=== PATIENT | female | born 1995 | race Caucasian/White ===

== ENCOUNTER 2017-11-08 22:27 | Emergency (ER) | payer OTHER ==
[2017-11-08] MEDS ORDERED: Robitussin AC Syrup Unit Dose Cup PO STA (22:51)
[2017-11-08 22:53] VITALS: BP 137/83; PULSE 100; O2SAT 98
[2017-11-08] MEDS ORDERED: Robitussin AC Syrup Unit Dose Cup ONE (22:55)
--- NOTE | 2017-11-08 22:59 | ERPHSYRPT ---
- History of Present Illness Time Seen by Provider: 11/08/17 22:54 Source: patient Exam Limitations: no limitations Patient Subjective Stated Complaint: Cough, sore throat Triage Nursing Assessment: Pt presents to the Ed with complaints of cough, sore throat and congestion x2 days. Pt denies fevers, sob, or other complaints. Pt is A&O x3, bed in low position, call light in reach. No distress noted. Physician History: Pt presents to the Ed with complaints of cough, sore throat and congestion x2 days. Pt denies fevers, sob, or other complaints. Timing/Duration: day(s) (2 days) Cough Quality/Degree: dry cough Associated Symptoms: chills, cough, muscle aches International travel in last 2 weeks: No Allergies/Adverse Reactions: Bleach (Sodium Hypochlorite) Allergy (Verified 11/08/17 22:54) lavender (Lavandula angustifolia) Allergy (Verified 11/08/17 22:54) Hx Tetanus, Diphtheria Vaccination/Date Given: Yes Hx Influenza Vaccination/Date Given: No Hx Pneumococcal Vaccination/Date Given: No Immunizations Up to Date: Yes - Review of Systems Constitutional: Malaise Eyes: No Symptoms Ears, Nose, & Throat: Throat Pain Respiratory: Cough Cardiac: No Symptoms Abdominal/Gastrointestinal: No Symptoms Genitourinary Symptoms: No Symptoms Musculoskeletal: No Symptoms - Social History Smoking Status: Current every day smoker How long have you smoked: 5 years Exposure to second hand smoke: Yes Patient Lives Alone: No - Female History Hx Last Menstrual Period: 11/08/2017 Hx Now: No - Nursing Vital Signs Nursing Vital Signs: Initial Vital Signs Temperature 98.6 F 11/08/17 22:49 Pulse Rate 100 H 11/08/17 22:49 Respiratory Rate 16 11/08/17 22:49 Blood Pressure 137/83 11/08/17 22:49 O2 Sat by Pulse Oximetry 98 11/08/17 22:49 Pain Scale Pain Intensity 0 - Physical Exam General Appearance: mild distress Eye Exam: PERRL/EOMI Ears, Nose, Throat Exam: moist mucous membranes, pharyngeal erythema Neck Exam: normal inspection Respiratory Exam: normal breath sounds Cardiovascular Exam: regular rate/rhythm Gastrointestinal/Abdomen Exam: soft Back Exam: normal inspection Extremity Exam: normal inspection SpO2: 98 Oxygen Delivery: Room Air - Course Nursing assessment & vital signs reviewed: Yes Ordered Tests: Medication Summary Discontinued Medications Generic Name Dose Route Start Last Admin Trade Name Yudith PRN Reason Stop Dose Admin Guaifenesin/Codeine Phosphate 10 ml 11/08/17 22:51 Robitussin Ac Syrup Unit Dose Cup PO 11/08/17 22:52 Q4H PRN STA - Progress Progress: unchanged Air Movement: good Blood Culture(s) Obtained: No Antibiotics given: No Counseled pt/family regarding: diagnosis, need for follow-up - Departure Time of Disposition: 22:57 Departure Disposition: Home Clinical Impression: Influenza A Condition: Stable Critical Care Time: No Referrals: JULIEN JAVED MD [Primary Care Provider] - Instructions: Flu, Adult (DC) Additional Instructions: VIRAL ILLNESS 1. Rest at home and take any prescribed medications as directed or until gone. 2. Offer plenty of fluids as tolerated. 3. Acetaminophen or Ibuprofen as directed. 4. Be sure to follow up with your family physician or return to the emergency department if symptoms change or become worse. Prescriptions: Guaifenesin/Dextromethorphan [Mucinex Dm ER 600-30 mg Tablet] 1 each PO BID #10 tab.er.12h
== END 2017-11-08 23:43 | disposition home or self-care (01) ==
LOC: ED 22:27
DX: J11.1 Influenza due to unidentified influenza virus with other respiratory manifestations (principal); R05 Cough; J02.9 Acute pharyngitis, unspecified
CPT/HCPCS: 99283; A9270-GY

== ENCOUNTER 2024-02-28 23:46 | Emergency (ER) | payer OTHER ==
[2024-02-28 23:56] VITALS: TEMP 97; O2SAT 97
[2024-02-29] MEDS ORDERED: ATARAX 25 MG ONE (00:32)
[2024-02-29] MEDS: ATARAX 25 MG PO ONE (00:33)
[2024-02-29] MEDS ORDERED: ZOFRAN ODT 4 MG ONE (00:36)
[2024-02-29] MEDS: ZOFRAN ODT 4 MG PO ONE (00:40)
--- NOTE | 2024-02-29 00:43 | ERPHSYRPT ---
- History of Present Illness Time Seen by Provider: 02/29/24 00:20 Historian: patient Patient Subjective Stated Complaint: chest discomfort most of the day, vomiting. Pt states, "I've been having this chest pain off and on for about a year and a half but it has gotten worse lately". Triage Nursing Assessment: Pt ambulated into ER without difficulty, sister at bedside. Pt is alert and oriented x4. Pt c/o chest pain to the left side of her chest that began around 11:30 today and has been off and on. Pt was seen tonight at [facility] at 2130 for the same thing and released. Pt does state that she's had chest pain off and on for about a year and a half now. Pt is 8 weeks , has some nausea and vomiting. Pt is extremely anxious. Physician History: 28yo f presents for left sided shoulder and chest pain that has been ongoing intermittently for the past 1.5yrs. Pt reports she is a , states she is currently 8wks ega confirmed by urine test. Pt reports significant hx of anxiety, states this chest discomfort has significantly worsened her anxiety as well. Pt states the pain begins in her left shoulder/trapezius and radiates anteriorly into the left upper chest. Pt also reports some associated nausea and vomiting, has vomited several times today, NBNB. Pt is anxious on exam. Pt denies sob, abdominal pain, vaginal bleeding. Pt states she was seen in [facility] ED earlier today for the same sx, at which time they "did an ekg and told her she was fine." Timing/Duration: intermittent Activities at Onset: none Quality: aching Location: shoulder (left) Chest Pain Radiation: no radiation Severity of Pain-Max: mild Severity of Pain-Current: mild Modifying Factors: Improves With: nothing Associated Symptoms: nausea, vomiting, No palpitations, No abdominal pain, No shortness of breath, No cough, No fever, No edema Prior Chest Pain/Cardiac Workup: recently seen/treated (outpatient cardiac workup started by PCP David Daniels) Nitro Today/Relief: no nitro taken today Aspirin Treatment Today: no aspirin today Allergies/Adverse Reactions: Bleach (Sodium Hypochlorite) Allergy (Verified 02/29/24 00:17) lavender (Lavandula angustifolia) Allergy (Verified 02/29/24 00:17) cephalexin [From Keflex] Adverse Reaction (Intermediate, Verified 02/29/24 00:17) Itching Home Medications: PANTOPRAZOLE 40 mg Tablet [Protonix 40MG Tablet] 1 tab PO DAILY 02/29/24 [History] Vit37/Iron/Folic Acid [Prenata Chewable Tablet] 1 tab PO DAILY 02/29/24 [History] Sertraline HCl 50 mg [Zoloft 50 mg Tablet] 25 mg PO DAILY 02/29/24 [History] Hx Tetanus, Diphtheria Vaccination/Date Given: Yes Hx Influenza Vaccination/Date Given: No Hx Pneumococcal Vaccination/Date Given: No Travel Risk - International Travel Have you traveled outside of the country in past 3 weeks: No - Emerging Infectious Disease Symptoms: Cough: New Onset, Vomitting - Review of Systems Constitutional: No Symptoms Respiratory: No Symptoms Cardiac: Chest Pain Abdominal/Gastrointestinal: Nausea, Vomiting, No Abdominal Pain, No Hematemesis, No Hematochezia Genitourinary Symptoms: No Symptoms - Past Medical History Pertinent Past Medical History: Yes Neurological History: No Pertinent History ENT History: No Pertinent History Cardiac History: No Pertinent History Respiratory History: Asthma Endocrine Medical History: No Pertinent History Musculoskeletal History: No Pertinent History GI Medical History: GERD History: No Pertinent History Psycho-Social History: No Pertinent History Female Reproductive Disorders: No Pertinent History Other Medical History: 1 miscarriage, 1 - Past Surgical History Past Surgical History: Yes Neuro Surgical History: No Pertinent History Cardiac: No Pertinent History Respiratory: No Pertinent History Gastrointestinal: Cholecystectomy Genitourinary: No Pertinent History Musculoskeletal: Orthopedic Surgery Female Surgical History: No Pertinent History Other Surgical History: Rt ankle 2 surgeries in 2018 - Female History Hx Last Menstrual Period: . Hx Now: Yes Gestational Age: 8 weeks - Social History Smoking Status: Current every day smoker How long have you smoked: 10 yrs Exposure to second hand smoke: Yes Drug Use: none Patient Lives Alone: No - Nursing Vital Signs Nursing Vital Signs: Initial Vital Signs Temperature 97.0 F 02/28/24 23:54 Pulse Rate 86 02/28/24 23:54 Respiratory Rate 20 02/28/24 23:54 Blood Pressure 113/76 02/28/24 23:54 O2 Sat by Pulse Oximetry 97 02/28/24 23:54 Pain Scale Pain Intensity 5 - Physical Exam General Appearance: no apparent distress, alert, anxiety Respiratory Exam: normal breath sounds, lungs clear, airway intact, No chest tenderness, No respiratory distress, No diminished breath sounds Cardiovascular Exam: regular rate/rhythm, normal heart sounds, normal peripheral pulses, No edema Gastrointestinal/Abdomen Exam: soft, No tenderness Extremity Exam: other (TTP, hypertonicity of left trapezius musculature ) Neurologic Exam: alert, oriented x 3, cooperative SpO2 Interpretation: normal SpO2: 97 O2 Delivery: Room Air - Course EKG Interpreted by Me: RATE (76), Sinus Rhythm, NORMAL ST-T, Other (qtcb [id number]) Ordered Tests: Active Orders 24 hr Category Date Time Status CBC W DIFF Stat Lab 02/29/24 00:46 Completed CMP Stat Lab 02/29/24 00:46 Completed TROPONIN Q4H Lab 02/29/24 00:46 Completed TROPONIN Q4H Lab 02/29/24 04:30 Ordered TROPONIN Q4H Lab 02/29/24 08:30 Ordered UA W/RFX UR CULTURE Stat Lab 02/29/24 00:31 Completed Medication Summary Discontinued Medications Generic Name Dose Route Start Last Admin Trade Name Selwynq PRN Reason Stop Dose Admin Hydroxyzine HCl 25 mg 02/29/24 00:28 02/29/24 00:33 Hydroxyzine Hcl 25 Mg Tablet PO 02/29/24 00:29 25 mg STAT ONE Administration Hydroxyzine HCl Confirm 02/29/24 00:32 Hydroxyzine Hcl 25 Mg Tablet Administered 02/29/24 00:33 Dose 25 mg .ROUTE .STK-MED ONE Ondansetron HCl 4 mg 02/29/24 00:36 02/29/24 00:40 Zofran 4 Mg/Udtablet Orally Disintegrating PO 02/29/24 00:37 4 mg STAT ONE Administration Ondansetron HCl Confirm 02/29/24 00:36 Zofran 4 Mg/Udtablet Orally Disintegrating Administered 02/29/24 00:37 Dose 4 mg .ROUTE .STK-MED ONE Lab/Rad Data: Laboratory Result Diagrams 02/29/24 00:46 02/29/24 00:46 Laboratory Results 02/29/24 02/29/24 02/29/24 Range/Units 00:46 00:46 00:46 WBC 12.6 H (4.0-10.5) x10^3/uL RBC 4.29 (4.1-5.4) x10^6/uL Hgb 12.8 (12.0-16.0) g/dL Hct 37.1 (35-47) % MCV 86.5 (78-100) fL MCH 29.8 (26-32) pg MCHC 34.5 (32-36) g/dL RDW 12.5 (11.5-14.0) % Plt Count 286 (150-450) x10^3/uL MPV 10.3 (7.5-11.0) fL Gran % 79.7 H (36.0-66.0) % Immature Gran % (Auto) 0.3 (0.00-0.4) % Nucleat RBC Rel Count 0.0 (0.00-0.1) % Eos # (Auto) 0.02 (0-0.5) x10^3/uL Immature Gran # (Auto) 0.04 H (0.00-0.03) x10^3u/L Absolute Lymphs (auto) 1.89 (1.0-4.6) x10^3/uL Absolute Monos (auto) 0.58 (0.0-1.3) x10^3/uL Absolute Nucleated RBC 0.00 (0.00-0.01) x10^3u/L Lymphocytes % 15.0 L (24.0-44.0) % Monocytes % 4.6 (0.0-12.0) % Eosinophils % 0.2 (0.00-5.0) % Basophils % 0.2 (0.0-0.4) % Absolute Granulocytes 10.06 H (1.4-6.9) x10^3/uL Basophils # 0.02 (0-0.4) x10^3/uL Sodium 139 (135-145) mmol/L Potassium 3.6 (3.5-5.1) mmol/L Chloride 106 (98-107) mmol/L Carbon Dioxide 23 (22-30) mmol/L Anion Gap 13.5 (5-15) MEQ/L BUN 4 L (7-17) mg/dL Creatinine 0.63 (0.52-1.04) mg/dL Estimated GFR 123.8 ML/MIN Glucose 97 (74-106) mg/dL Calcium 9.7 (8.4-10.2) mg/dL Total Bilirubin 0.50 (0.2-1.3) mg/dL AST 19 (14-36) U/L ALT 30 (0-35) U/L Alkaline Phosphatase 89 (38-126) U/L Troponin I < 0.012 (0.000-0.033) ng/mL Serum Total Protein 7.8 (6.3-8.2) g/dL Albumin 4.6 (3.5-5.0) g/dL Urine Color (Yellow) Urine Appearance (Clear) Urine pH (4.6-8.0) Ur Specific [place] (1.005-1.030) Urine Protein (Negative) Urine Glucose (UA) (Negative) mg/dL Urine Ketones (Negative) Urine Blood (Negative) Urine Nitrite (Negative) Urine Bilirubin (Negative) Urine Urobilinogen (0.2) mg/dL Ur Leukocyte Esterase (Negative) U Hyaline Cast (Auto) (0-2) /LPF Urine Microscopic RBC (0-5) /HPF Urine Microscopic WBC (0-5) /HPF Ur Epithelial Cells (None Seen) /HPF Urine Bacteria (None Seen) /HPF Urine Culture Reflexed (NO) 02/29/24 Range/Units 00:31 WBC (4.0-10.5) x10^3/uL RBC (4.1-5.4) x10^6/uL Hgb (12.0-16.0) g/dL Hct (35-47) % MCV (78-100) fL MCH (26-32) pg MCHC (32-36) g/dL RDW (11.5-14.0) % Plt Count (150-450) x10^3/uL MPV (7.5-11.0) fL Gran % (36.0-66.0) % Immature Gran % (Auto) (0.00-0.4) % Nucleat RBC Rel Count (0.00-0.1) % Eos # (Auto) (0-0.5) x10^3/uL Immature Gran # (Auto) (0.00-0.03) x10^3u/L Absolute Lymphs (auto) (1.0-4.6) x10^3/uL Absolute Monos (auto) (0.0-1.3) x10^3/uL Absolute Nucleated RBC (0.00-0.01) x10^3u/L Lymphocytes % (24.0-44.0) % Monocytes % (0.0-12.0) % Eosinophils % (0.00-5.0) % Basophils % (0.0-0.4) % Absolute Granulocytes (1.4-6.9) x10^3/uL Basophils # (0-0.4) x10^3/uL Sodium (135-145) mmol/L Potassium (3.5-5.1) mmol/L Chloride (98-107) mmol/L Carbon Dioxide (22-30) mmol/L Anion Gap (5-15) MEQ/L BUN (7-17) mg/dL Creatinine (0.52-1.04) mg/dL Estimated GFR ML/MIN Glucose (74-106) mg/dL Calcium (8.4-10.2) mg/dL Total Bilirubin (0.2-1.3) mg/dL AST (14-36) U/L ALT (0-35) U/L Alkaline Phosphatase (38-126) U/L Troponin I (0.000-0.033) ng/mL Serum Total Protein (6.3-8.2) g/dL Albumin (3.5-5.0) g/dL Urine Color Yellow (Yellow) Urine Appearance Clear (Clear) Urine pH 6.0 (4.6-8.0) Ur Specific [place] 1.015 (1.005-1.030) Urine Protein Negative (Negative) Urine Glucose (UA) Negative (Negative) mg/dL Urine Ketones Negative (Negative) Urine Blood Negative (Negative) Urine Nitrite Negative (Negative) Urine Bilirubin Negative (Negative) Urine Urobilinogen 0.2 (0.2) mg/dL Ur Leukocyte Esterase Negative (Negative) U Hyaline Cast (Auto) NONE SEEN (0-2) /LPF Urine Microscopic RBC 3-5 (0-5) /HPF Urine Microscopic WBC 0-2 (0-5) /HPF Ur Epithelial Cells Few (None Seen) /HPF Urine Bacteria Few A (None Seen) /HPF Urine Culture Reflexed NO (NO) - Progress Progress: improved Air Movement: good Progress Note: 02/29/24 01:31 ekg not suggestive of ischemia troponin negative x 1 cmp grossly unremarkable mild increase in wbc - 12k, UA not suggestive of UTI sx improved w/ hydroxyzine and zofran will apply lidocaine patch to left trapezius before discharge plan to dc home w/ close PCP and OBGYN f/u (Amadeo Kay - appt on 03/02) will send script for hydroxyzine and zofran short course return to ED if: develop worsening chest pains, develop blurry vision, develop vaginal bleeding, develop significant abdominal cramping Blood Culture(s) Obtained: No Antibiotics given: No Counseled pt/family regarding: lab results, diagnosis, need for follow-up Medical Desision Making - Risk of complications Minimal Risk: Minimal risk of morbidity - Departure Departure Disposition: Home Clinical Impression: Anxiety, Trapezius muscle spasm, Chest discomfort Nausea & vomiting Qualifiers: Vomiting type: unspecified Qualified Code(s): R11.2 - Nausea with vomiting, unspecified Condition: Stable Critical Care Time: No Referrals: ORALIA KAY, OB NURSE [Primary Care Provider] - Follow up/PCP as directed Additional Instructions: plan to dc home w/ close PCP and OBGYN f/u (Amadeo Kay - appt on 03/02) will send script for hydroxyzine and zofran short course return to ED if: develop worsening chest pains, develop blurry vision, develop vaginal bleeding, develop significant abdominal cramping Prescriptions: Ondansetron ODT 4 MG [Zofran Odt 4 mg] 4 mg PO Q8H PRN PRN #10 tablet PRN Reason: Nausea Hydroxyzine HCl 25 mg [Atarax 25 mg] 25 mg PO Q8H 3 Days #9 tablet
[2024-02-29 00:49] LABS: Absolute Neutrophil Ct (ANC) 10.06 x10^3/uL (1.4-6.9); BASOPHIL % 0.2 % (0.0-0.4); Basophil (Absolute #) 0.02 x10^3/uL (0-0.4); Eosinophil % 0.2 % (0.00-5.0); Eosinophil (Absolute #) 0.02 x10^3/uL (0-0.5); Hematocrit 37.1 % (35-47); Hemoglobin 12.8 g/dL (12.0-16.0); IMMATURE GRAN # 0.04 x10^3u/L (0.00-0.03); IMMATURE GRAN % 0.3 % (0.00-0.4); Lymphocyte (Absolute #) 1.89 x10^3/uL (1.0-4.6); Mean Cell Volume 86.5 fL (78-100); Mean Corpuscular Hemoglobin 29.8 pg (26-32); Mean Corpuscular Hgb Concent. 34.5 g/dL (32-36); Mean Platelet Volume 10.3 fL (7.5-11.0); Monocyte (Absolute #) 0.58 x10^3/uL (0.0-1.3); Monocytes % 4.6 % (0.0-12.0); Neutrophil % 79.7 % (36.0-66.0); Platelet Count 286 x10^3/uL (150-450); Red Blood Count 4.29 x10^6/uL (4.1-5.4); Red Cell Distribution Width 12.5 % (11.5-14.0); White Blood Count 12.6 x10^3/uL (4.0-10.5)
[2024-02-29 00:56] LABS: Appearance Clear (Clear); Bacteria Few /HPF (None Seen); Bilirubin Negative (Negative); Blood Negative (Negative); Epithelial Cells Few /HPF (None Seen); Glucose, Urine Negative (Negative); Hyaline Casts NONE SEEN /LPF (0-2); Ketones Negative (Negative); Leukocyte Esterase Negative (Negative); Nitrite Negative (Negative); Protein,Urine Dip Negative (Negative); Specific Gravity 1.015 (1.005-1.030); Urobilinogen 0.2 mg/dL (0.2); WBC 0-2 /HPF (0-5)
[2024-02-29 00:57] LABS: ADD URINE CULTURE? NO (NO)
[2024-02-29 01:03] LABS: ALBUMIN 4.6 g/dL (3.5-5.0); ANION GAP 13.5 MEQ/L (5-15); BILIRUBIN,TOTAL 0.5 mg/dL (0.2-1.3); Calcium 9.7 mg/dL (8.4-10.2); Creatinine 1 0.63 mg/dL (0.52-1.04); EST GLOMERULAR FILTRATION RATE 123.8 ML/MIN; Potassium 3.6 mmol/L (3.5-5.1); Total Protein 7.8 g/dL (6.3-8.2)
[2024-02-29] MEDS: Lidoderm Patch 5% TOP ONE (01:50)
[2024-02-29 01:57] VITALS: BP 132/96; PULSE 102; RESP 18
== END 2024-02-29 01:58 | disposition home or self-care (01) ==
LOC: ED 23:46
DX: F41.9 Anxiety disorder, unspecified (principal); M62.838 Other muscle spasm; R07.9 Chest pain, unspecified; R11.2 Nausea with vomiting, unspecified; M25.512 Pain in left shoulder; Z33.1 Pregnant state, incidental; Z79.899 Other long term (current) drug therapy; Z72.0 Tobacco use
CPT/HCPCS: 36415; 80053; 81001; 84484; 85025; 99283; Q0162; A9270-GY